=== PATIENT | male | born 1980 | race Caucasian/White ===

== ENCOUNTER 2017-08-23 18:38 | Emergency (ER) | payer BC ==
--- NOTE | 2017-08-23 18:43 | UC ---
Skin Complaint HPI - HPI Summary HPI Summary: 37 yo male presents with full body rash/itching for 2-3 weeks. He tells me that for a few days in a row he will break out into a "body wide" rash that itches. He has been applying lotions daily since this and these have not helped. No changes in routine/clothes/detergents/soaps. Denies fever, chills, recent illness. HE is concerned he might have scabies. - History of Current Complaint Time Seen by Provider: 08/23/17 18:43 Stated Complaint: SKIN COMPLAINT Hx Obtained From: Patient Onset/Duration: Sudden Onset Timing: Intermittent Episodes Lasting: - Allergy/Home Medications Allergies/Adverse Reactions: Allergies Allergy/AdvReac Type Severity Reaction Status Date / Time No Known Allergies Allergy Verified 08/15/13 15:43 Home Medications: Home Medications Budesonide/Formote 160/4.5(NF) [Symbicort 160/4.5 (NF)] 1 puff INH DAILY [History Confirmed 08/23/17] Review of Systems Constitutional: Negative Skin: Rash - Widespread Respiratory: Negative Cardiovascular: Negative Gastrointestinal: Negative Neurovascular: Negative Neurological: Negative Psychological: Negative All Other Systems Reviewed And Are Negative: Yes PMH/Surg Hx/FS Hx/Imm Hx Respiratory History: Asthma - Surgical History Surgical History: Yes Surgery Procedure, Year, and Place: SURGERY ON RIGHT WRIST - Family History Known Family History: Positive: Respiratory Disease - asthma - Social History Occupation: Employed Full-time Lives: With Family Alcohol Use: Rare Substance Use Type: None Smoking Status (MU): Never Smoked Tobacco - Immunization History Most Recent Tetanus Shot: in the last 5 years Physical Exam - Summary Physical Exam Summary: GENERAL: NAD. WDWN. No pain distress. SKIN: Scant fine mildly erythematous rash on b/l extremities, abdomen, chest, and back. No streaking, bleeding, or drainage. NECK: Supple. Nontender. No lymphadenopathy. CHEST: No accessory muscle use. Breathing comfortably and in no distress. CV: RRR. Without m/r/g. NEURO: Alert. CN II-XII grossly intact. PSYCH: Age appropriate behavior. Triage Information Reviewed: Yes Vital Signs: Vital Signs: Temp Pulse Resp BP Pulse Ox 98.2 F 85 20 161/97 97 08/23/17 18:44 08/23/17 18:44 08/23/17 18:44 08/23/17 18:44 08/23/17 18:44 Course/Dx - Course Course Of Treatment: Suspect contact dermatitis vs eczema. Advised to stop using scented lotions and switch to a skin sensitive fragrent free soap. - Diagnoses Provider Diagnoses: Atopic dermatitis Discharge - Sign-Out/Discharge Documenting (check all that apply): Discharge/Admit/Transfer - Discharge Plan Condition: Stable Disposition: HOME Prescriptions: predniSONE TAB* [Deltasone TAB*] 20 mg PO DAILY #13 tab Patient Education Materials: Dermatitis (ED) Referrals: Dipak Land MD [Primary Care Provider] - Matt Lacy MD [Medical Doctor] - If Needed Additional Instructions: If you develop a fever, shortness of breath, chest pain, new or worsening symptoms - please call your PCP or go to the ED. Your blood pressure was high at todays visit. Please see your primary provider within 4 weeks for recheck and re-evaluation. 1) If your rash returns or persists - please call Dermatology at the number below to schedule a follow up appointment - Billing Disposition and Condition Condition: STABLE Disposition: HOME
[2017-08-23 18:50] VITALS: BP 161/97
== END 2017-08-23 19:09 | disposition home or self-care (01) ==
LOC: UCCORT 18:38
DX: L20.9 Atopic dermatitis, unspecified (principal)
CPT/HCPCS: 99212; G0463

== ENCOUNTER 2018-02-25 17:14 | Emergency (ER) | payer BC ==
[2018-02-25 18:38] VITALS: BP 140/96
--- NOTE | 2018-02-25 19:29 | UC ---
Elbow Pain - HPI Summary HPI Summary: Pt presents with c/o left elbow pain, swelling, erythema X 5 days. Pt denies injury or wound - History of Current Complaint Chief Complaint: UCUpperExtremity Stated Complaint: LEFT ELBOW PAIN Time Seen by Provider: 02/25/18 18:43 Hx Obtained From: Patient Onset/Duration: Days, Atraumatic, Still Present, Worse Since - onset Severity Initially: Mild Severity Currently: Moderate Pain Intensity: 1 Location Of Pain: Is Discrete @ - left elbow to mid forearm Character: Sharp, Aching Aggravating Factor(s): Movement Alleviating Factor(s): Rest Associated Signs And Symptoms: Positive: Swelling, Redness - Allergies/Home Medications Allergies/Adverse Reactions: Allergies Allergy/AdvReac Type Severity Reaction Status Date / Time No Known Allergies Allergy Verified 02/25/18 18:27 Home Medications: Home Medications Ibuprofen TAB* [Advil TAB*] 600 mg PO Q6H PRN 02/25/18 [History Confirmed ] PMH/Surg Hx/FS Hx/Imm Hx Previously Healthy: Yes - Surgical History Surgical History: Yes Surgery Procedure, Year, and Place: SURGERY ON RIGHT WRIST - Family History Known Family History: Positive: Respiratory Disease - asthma - Social History Occupation: Employed Full-time Lives: With Family Alcohol Use: Rare Substance Use Type: None Smoking Status (MU): Never Smoked Tobacco Have You Smoked in the Last Year: No - Immunization History Most Recent Tetanus Shot: in the last 5 years Review of Systems All Other Systems Reviewed And Are Negative: Yes Constitutional: Positive: Negative Skin: Positive: Other - erythema Eyes: Positive: Negative ENT: Positive: Negative Respiratory: Positive: Negative Cardiovascular: Positive: Negative Gastrointestinal: Positive: Negative Genitourinary: Positive: Negative Motor: Positive: Negative Neurovascular: Positive: Negative Musculoskeletal: Positive: Arthralgia, Edema, Myalgia Neurological: Positive: Negative Psychological: Positive: Negative Is Patient Immunocompromised?: No Physical Exam Triage Information Reviewed: Yes Appearance: Well-Appearing Vital Signs: Initial Vital Signs Temp 98.7 F 02/25/18 18:31 Pulse 89 02/25/18 18:31 Resp 16 02/25/18 18:31 BP 140/96 02/25/18 18:31 Pulse Ox 98 02/25/18 18:31 Vital Signs Reviewed: Yes Eye Exam: Normal ENT Exam: Normal Dental Exam: Normal Neck exam: Normal Respiratory: Positive: No respiratory distress Musculoskeletal: Positive: Edema @ - left elbow that extends to mid shaft of forearm, mild erythem in circular patter, c/o pain with examination, no scabs or obvious wound Neurological Exam: Normal Psychological Exam: Normal Skin Exam: Other - mild erythema Elbow Pain Course/Dx - Differential Dx/Diagnosis Differential Diagnosis/HQI/PQRI: Bursitis, Cellulitis, Foreign Body Provider Diagnosis: Other infective bursitis, left elbow Discharge - Sign-Out/Discharge Documenting (check all that apply): Patient Departure All imaging exams completed and their final reports reviewed: No - Discharge Plan Condition: Stable Disposition: HOME Prescriptions: Cephalexin CAP* [Keflex 500 CAP*] 500 mg PO Q12H #21 cap Patient Education Materials: Elbow Bursitis (ED) Referrals: Dipak Land MD [Primary Care Provider] - As Soon As Possible - Billing Disposition and Condition Condition: STABLE Disposition: Home
--- NOTE | 2018-02-26 12:36 | ED ---
Progress - Progress Note Progress Note: Xray final read reviewed and neg. Course/Dx - Diagnoses Provider Diagnoses: Other infective bursitis, left elbow Discharge - Sign-Out/Discharge Documenting (check all that apply): Patient Departure All imaging exams completed and their final reports reviewed: Yes - Discharge Plan Condition: Stable Disposition: HOME Prescriptions: Cephalexin CAP* [Keflex 500 CAP*] 500 mg PO Q12H #21 cap Patient Education Materials: Elbow Bursitis (ED) Referrals: Dipak Land MD [Primary Care Provider] - As Soon As Possible - Billing Disposition and Condition Condition: STABLE Disposition: Home
== END 2018-02-25 19:40 | disposition home or self-care (01) ==
LOC: UCCORT 17:14
DX: M71.522 Other bursitis, not elsewhere classified, left elbow (principal)
CPT/HCPCS: 99212; G0463

== ENCOUNTER 2018-05-11 16:35 | Emergency (ER) | payer BC ==
[2018-05-11 17:00] VITALS: BP 146/87
--- NOTE | 2018-05-11 17:11 | UC ---
UC General HPI - HPI Summary HPI Summary: ill for about 1 week and worsening. worsening cough with congestion and wheezing, now sore throat and laryngitis x 1 day. + asthma, headache and body aches. - History of Current Complaint Chief Complaint: UCGeneralIllness Stated Complaint: FEVER,COUGH,VOMITING Time Seen by Provider: 05/11/18 16:52 Hx Obtained From: Patient, Family/Golf Ball Trimmer Onset/Duration: Gradual Onset Timing: Constant Pain Intensity: 0 - Allergy/Home Medications Allergies/Adverse Reactions: Allergies Allergy/AdvReac Type Severity Reaction Status Date / Time No Known Allergies Allergy Verified 05/11/18 17:00 PMH/Surg Hx/FS Hx/Imm Hx Endocrine History: Dyslipidemia Cardiovascular History: Hypertension Respiratory History: Asthma - Surgical History Surgical History: Yes Surgery Procedure, Year, and Place: SURGERY ON RIGHT WRIST - Family History Known Family History: Positive: Respiratory Disease - asthma - Social History Lives: With Family Alcohol Use: Rare Substance Use Type: None Smoking Status (MU): Never Smoked Tobacco Have You Smoked in the Last Year: No - Immunization History Most Recent Tetanus Shot: in the last 5 years Review of Systems All Other Systems Reviewed And Are Negative: Yes Constitutional: Positive: Fever Skin: Positive: Negative Eyes: Positive: Negative ENT: Positive: Sore Throat Respiratory: Positive: Shortness Of Breath, Cough Cardiovascular: Positive: Negative Gastrointestinal: Positive: Nausea Genitourinary: Positive: Negative Motor: Positive: Negative Neurovascular: Positive: Negative Musculoskeletal: Positive: Myalgia Neurological: Positive: Headache Psychological: Positive: Negative Physical Exam Triage Information Reviewed: Yes Appearance: Ill-Appearing - but non toxic Vital Signs: Initial Vital Signs Temp 99.4 F 05/11/18 16:57 Pulse 102 05/11/18 16:57 Resp 16 05/11/18 16:57 BP 146/87 05/11/18 16:57 Pulse Ox 96 05/11/18 16:57 Vital Signs Reviewed: Yes Eyes: Positive: Conjunctiva Clear ENT: Positive: Pharyngeal erythema, TMs normal. Negative: Nasal drainage Neck: Positive: Supple, Nontender, No Lymphadenopathy Respiratory: Positive: No respiratory distress, Decreased breath sounds, Rhonchi , Wheezing, Other: - cough is congested Cardiovascular: Positive: RRR, No Murmur. Negative: Tachycardia Abdomen Description: Positive: Nontender, No Organomegaly, Soft Bowel Sounds: Positive: Present Musculoskeletal: Positive: ROM Intact Neurological: Positive: Alert Psychological: Positive: Normal Response To Family, Age Appropriate Behavior Skin Exam: Normal Diagnostics - Laboratory Diagnostic Studies Completed/Ordered: RPAID STREP AND FLU=NEGATIVE - Radiology No standard instances Radiology Interpretation Completed By: Radiologist - cxr=nad Re-Evaluation - Re-Evaluation First Eval Re-Evaluation Time: 17:40 Change: Improved - rhonchi/wheezes cleared but aeration still diminished Course/Dx - Differential Dx - Multi-Symptom Differential Diagnoses: Other - cxr=nad. rapid strep/flu neg. Worsening illness plus asthma flare thus will tx for secondary bacterial infection and asthma flare with close f/u - Diagnoses Provider Diagnosis: Laryngitis, Asthma flare, Pharyngitis Discharge - Sign-Out/Discharge Documenting (check all that apply): Patient Departure All imaging exams completed and their final reports reviewed: Yes - Discharge Plan Condition: Stable Disposition: HOME Prescriptions: Albuterol HFA INHALER* [Ventolin HFA Inhaler*] 2 puff INH Q6H #1 mdi Azithromycin TAB* [Zithromax TAB (Z-RED) 250 mg #6 tabs] 2 tab PO .TODAY, THEN 1 DAILY #1 red predniSONE [Prednisone 20 MG TAB] 40 mg PO DAILY 5 Days #10 tablet Patient Education Materials: Asthma (ED), Pharyngitis (ED), Laryngitis (ED) Referrals: Dipak Land MD [Primary Care Provider] - 5 Days - Billing Disposition and Condition Condition: STABLE Disposition: Home
[2018-05-11] MEDS ORDERED: Albuterol 2.5 MG/3 ML NEB.SOL* (0.083%) INH ONE (17:14)
[2018-05-11 17:41] LABS: Influenza A Molecular NEGATIVE (Negative); Influenza B Molecular NEGATIVE (Negative)
== END 2018-05-11 17:54 | disposition home or self-care (01) ==
LOC: UCCORT 16:35
DX: J06.0 Acute laryngopharyngitis (principal); J45.909 Unspecified asthma, uncomplicated; I10 Essential (primary) hypertension
CPT/HCPCS: 71046; 87651; 99212; G0463

== ENCOUNTER 2018-08-19 14:34 | Emergency (ER) | payer BC, OTHER | END 2018-08-19 15:00 | disposition left against medical advice (07) | LOC: UCEAST 14:34 | DX: Z53.21 Procedure and treatment not carried out due to patient leaving prior to being seen by health care provider (principal) ==

== ENCOUNTER 2019-06-05 09:58 | Emergency (ER) | payer BC, OTHER ==
[2019-06-05 10:38] VITALS: BP 143/84
--- NOTE | 2019-06-05 10:56 | UC ---
Eye Complaint HPI - HPI Summary HPI Summary: 38-year-old male who has had red eyes with the past 2 days with pus drainage. At first he thought this was his seasonal allergies however he states he usually does not have pus drainage with that. He does not wear contact lenses. - History of Current Complaint Chief Complaint: UCEye Stated Complaint: BILATERAL EYE Time Seen by Provider: 06/05/19 10:34 Hx Obtained From: Patient Onset/Duration: Gradual Onset Timing: Constant Severity Initially: Mild Severity Currently: Mild Pain Intensity: 0 Location of Injury: Other - No injury Aggravating Factor(s): Nothing, Other Alleviating Factor(s): Nothing Associated Signs And Symptoms: Positive: Drainage (Purulent) - Allergies/Home Medications Allergies/Adverse Reactions: Allergies Allergy/AdvReac Type Severity Reaction Status Date / Time No Known Allergies Allergy Verified 06/05/19 10:34 Home Medications: Home Medications Albuterol Sulfate [Proventil Hfa] 108 mcg IN Q4HR PRN 03/10/16 [History Confirmed 06/05/19] Amlodipine Besylate-Atorvastat [Amlodipine Besylate/Atorv 10-10 mg-] 1 tab PO DAILY 03/10/16 [History Confirmed 06/05/19] Budesonide/Formote 160/4.5(NF) [Symbicort 160/4.5 (NF)] 1 puff INH DAILY [History Confirmed 06/05/19] Pseudoephedrine HCL ER TAB* [Sudafed 12 Hour*] 120 mg PO BID PRN 06/05/19 [ History Confirmed 06/05/19] Tobramycin 0.3% OPHTH.PADMINI* 1 drop BOTH EYES Q4H 7 Days #1 btl 06/05/19 [Rx] PMH/Surg Hx/FS Hx/Imm Hx Previously Healthy: Yes Cardiovascular History: Hypertension Respiratory History: Asthma - Surgical History Surgical History: Yes Surgery Procedure, Year, and Place: SURGERY ON RIGHT WRIST - Family History Known Family History: Positive: Respiratory Disease - asthma - Social History Occupation: Employed Full-time Lives: With Family Alcohol Use: Rare Substance Use Type: None Smoking Status (MU): Never Smoked Tobacco Have You Smoked in the Last Year: No - Immunization History Most Recent Tetanus Shot: in the last 5 years Review of Systems All Other Systems Reviewed And Are Negative: Yes Eyes: Positive: Drainage - Pus drainage bilaterally. The right is worse in the left today., Eye Redness Is Patient Immunocompromised?: No Physical Exam Triage Information Reviewed: Yes Appearance: Well-Appearing, No Pain Distress, Well-Nourished Vital Signs: Initial Vital Signs Temp 98 F 06/05/19 10:36 Pulse 102 06/05/19 10:36 Resp 18 06/05/19 10:36 BP 143/84 06/05/19 10:36 Pulse Ox 98 06/05/19 10:36 Vital Signs Reviewed: Yes Eyes: Positive: Conjunctiva Inflamed, Discharge - Very minimal yellow pus drainage today from the right eye., Other: - PERRLA, EOMI ENT: Positive: Hearing grossly normal, Pharynx normal, TMs normal, Uvula midline Neck: Positive: Supple, Nontender, No Lymphadenopathy Respiratory: Positive: Lungs clear, Normal breath sounds, No respiratory distress, No accessory muscle use Cardiovascular: Positive: RRR, No Murmur, Pulses Normal, Brisk Capillary Refill Musculoskeletal Exam: Normal Neurological Exam: Normal Psychological Exam: Normal Skin Exam: Normal Eye Complaint Course/Dx - Course Course Of Treatment: Patient is comfortable here and nontoxic. - Differential Dx/Diagnosis Provider Diagnosis: Bilateral conjunctivitis Discharge ED - Sign-Out/Discharge Documenting (check all that apply): Patient Departure All imaging exams completed and their final reports reviewed: No Studies - Discharge Plan Condition: Good Disposition: HOME Prescriptions: Tobramycin 0.3% OPHTH.PADMINI* 1 drop BOTH EYES Q4H 7 Days #1 btl Patient Education Materials: Conjunctivitis (ED) Forms: *Work Release Referrals: Dipak Land MD [Primary Care Provider] - Additional Instructions: Increase fluids, good handwashing if you touch your face or eyes, follow-up with the slicing machine operator if no improvement in 2 or 3 days. - Billing Disposition and Condition Condition: GOOD Disposition: Home
== END 2019-06-05 11:03 | disposition home or self-care (01) ==
LOC: UCCORT 09:58
DX: H10.9 Unspecified conjunctivitis (principal); I10 Essential (primary) hypertension; J45.909 Unspecified asthma, uncomplicated; Z79.899 Other long term (current) drug therapy
CPT/HCPCS: 99212; G0463